=== PATIENT | male | born 1955 | race Caucasian/White ===

== ENCOUNTER 2016-08-29 13:42 | Inpatient (IN) | payer MEDICAID ==
[~2016-08-29] VITALS: Ht 177.8 cm; Wt 126.1 kg
--- NOTE | 2016-08-29 14:03 | NUR ---
PT IS IN ROOM #1A. DR BECK EVALUATED THE PT.
[2016-08-29] MEDS ORDERED: PIPERACILLIN SODIUM/TAZOBACTAM 3.375 G in IV DEXTROSE 5% 50 ML IV ONE (15:00)
[2016-08-29] MEDS ORDERED: VANCOMYCIN IV 1,000 MG in IV DEXTROSE 5% 250 ML IV ONE (15:00)
[2016-08-29] MEDS ORDERED: IV NORMAL SALINE 1000 ML BAG IV ONE (15:00)
[2016-08-29] MEDS ORDERED: PIPERACILLIN/TAZOBACTAM/D5W 50 ML IV ONE (15:15)
[2016-08-29] MEDS ORDERED: VANCOMYCIN IV 200 ML ONE (15:15)
[2016-08-29 15:32] LABS: BASOPHILS # (AUTO) 0.1 K/uL (0.0-8.0); BASOPHILS % (AUTO) 1.3 % (0.0-2.0); EOSINOPHILS # (AUTO) 0.1 K/uL (0.0-0.7); EOSINOPHILS % (AUTO) 1.7 % (0.0-7.0); HEMATOCRIT 45.3 % (40-50); HEMOGLOBIN 15.3 G/DL (14.0-18.0); LYMPHOCYTES # (AUTO) 1.3 K/UL (0.8-4.8); LYMPHOCYTES % (AUTO) 23.6 % (20.5-51.5); MEAN CORPUSCULAR HEMOGLOBIN 34.4 UUG (27.0-31.0); MEAN CORPUSCULAR HGB CONC 34 g/dL (32.0-37.0); MONOCYTES # (AUTO) 0.9 K/UL (0.1-1.30); MONOCYTES % (AUTO) 15.7 % (0.0-11.0); NEUTROPHILS # (AUTO) 3.1 K/UL (1.8-8.9); NEUTROPHILS % (AUTO) 57.7 % (38.5-71.5); PLATELET COUNT (AUTO) 130 K/UL (150-450); RED BLOOD CELL COUNT(AUTO) 4.44 MIL/UL (4.7-6.1); WHITE BLOOD COUNT (AUTO) 5.5 K/UL (4.0-11.2)
[2016-08-29 15:40] LABS: CREATININE 0.8 mg/dL (0.6-1.3); POTASSIUM 3.6 mmol/L (3.5-5.1)
[2016-08-29 15:50] LABS: *BILIRUBIN,URIN NEGATIVE (NEGATIVE); *BLOOD, URINE NEGATIVE (NEGATIVE); *CLARITY,URINE CLEAR (CLEAR); *COLOR,URINE YELLOW (YELLOW); *KETONES,URINE NEGATIVE (NEGATIVE); *PROTEIN,URINE NEGATIVE (NEGATIVE); LEUKOCYTE ESTERASE ,URINE NEGATIVE (NEGATIVE); NITRITE, URINE NEGATIVE (NEGATIVE); PH,URINE 6.5 (5.0-8.0); UGLUCOSE NEGATIVE (NEGATIVE)
[2016-08-29 15:58] LABS: BILIRUBIN,DIRECT 0.3 mg/dL (0.0-0.2); BILIRUBIN,TOTAL 0.9 mg/dL (0.2-1.0); TOTAL PROTEIN, SERUM 7.5 g/dL (6.4-8.2)
[2016-08-29 16:08] LABS: NEUTROPHILS % (MANUAL) 0 % (42-75)
[2016-08-29 16:19] LABS: BACTERIA,URINE NONE SEEN /HPF (NONE SEEN); RBC,URINE 0-3 /HPF (0-3); SQUAMOUS EPITHELIAL CELL,UR NONE SEEN /HPF (NONE SEEN); WBC,URINE 0-3 /HPF (0-3)
--- NOTE | 2016-08-29 19:10 | NUR ---
REPORT GIVEN TO HEAD HOUSEKEEPER RN.
--- NOTE | 2016-08-29 19:17 | NUR ---
Received report from DELMIS Amaya. Assumed care of pt at this time. Admission pending. Pt resting in position of comfort for self. No obvious signs of distress at this time
--- NOTE | 2016-08-29 19:30 | NUR ---
Received telephone SBAR report from ESPINOZA Smith-DELMIS.
[2016-08-29] MEDS ORDERED: MISCELLANEOUS MED XX PRN ×2 (19:45)
--- NOTE | 2016-08-29 19:50 | NUR ---
Pt c/o severe pain. MD notified and pt medicated. pt given 1mg of dilaudid and 4 mg of zofran IVP. 3L in sepsis fluid bolus infusing freely to gravity. Report called to DELMIS Osullivan, preparing to transfer pt to the floor.
[2016-08-29] MEDS ORDERED: HYDROMORPHONE 1 MG/1 ML DISP.SYRIN ONE (19:58)
[2016-08-29] MEDS ORDERED: ONDANSETRON 4 MG/2 ML VIAL ONE (19:58)
[2016-08-29 20:00] VITALS: BP 216/103
--- NOTE | 2016-08-29 20:00 | NUR ---
Patient transported to this CCU-4 under MS status. Patient is in no acute distress. AAO x3. Complains of 8/10 sharp burning pain in BLE associated with cellulitis. Also complains of chest pain 7/10 that "feel like its going from my infected legs and shooting up to my chest." No radiation back, shoulders, jaw, or arms. Room air with low O2 sat Addendum: 08/30/16 at 0004 by DONA CATALAN RN ... ranging from 89-93%. Oxygen applied, will notify MD and obtain order. Peripheral IV in right AC, patent. Bolus ordered from ER still running and to be continued.
--- NOTE | 2016-08-29 20:30 | NUR ---
Spoke with Dr. Yari Jacob. Admission orders received, see Order List
[2016-08-29] MEDS ORDERED: ZOLPIDEM 5 MG TABLET PO PRN (20:45)
[2016-08-29] MEDS ORDERED: ACETAMINOPHEN 325 MG TABLET PO PRN (20:45)
[2016-08-29] MEDS: CLONIDINE HCL 0.1 MG TABLET PO PRN (21:00)
[2016-08-29] MEDS ORDERED: CLONIDINE HCL 0.1 MG TABLET ONE (21:09)
--- NOTE | 2016-08-29 21:09 | NUR ---
STK-MED ONCe Clonidine removed from pyxis, administered as ordered. See eMAR.
[2016-08-29] MEDS ORDERED: NORMAL SALINE FLUSH 10 ML DISP.SYRIN ONE (21:45)
[2016-08-29] MEDS ORDERED: IOHEXOL 350 100 ML INFUS..BTL ONE (21:45)
[2016-08-29] MEDS ORDERED: IV NORMAL SALINE 250 ML IV ONE (21:45)
[2016-08-29] MEDS ORDERED: PIPERACILLIN SODIUM/TAZO 3.375 GM VIAL ONE (22:16)
[2016-08-29] MEDS: PIPERACILLIN/TAZOBACTAM/D5W 3.375 G in PREMIXED 1 EACH IV SCH (23:35)
[2016-08-29] MEDS: HYDROCODONE/APAP 5-325MG TABLET PO PRN (23:55)
[2016-08-30] VITALS (8 sets, daily range): BP systolic 138–215; BP diastolic 81–104
[2016-08-30] MEDS ORDERED: HYDROCODONE/APAP 5-325MG TABLET ONE (00:04)
--- NOTE | 2016-08-30 00:19 | NUR ---
STK-MED ONCE Removed Benham from xis 08/30 0004. Administered as ordered for pain management, see eMAR
[2016-08-30 05:24] LABS: BASOPHILS % (AUTO) 0.9 % (0.0-2.0); EOSINOPHILS # (AUTO) 0.1 K/uL (0.0-0.7); EOSINOPHILS % (AUTO) 2.6 % (0.0-7.0); HEMOGLOBIN 13.1 G/DL (14.0-18.0); LYMPHOCYTES # (AUTO) 1.2 K/UL (0.8-4.8); LYMPHOCYTES % (AUTO) 27.6 % (20.5-51.5); MEAN CORPUSCULAR HEMOGLOBIN 34.3 UUG (27.0-31.0); MEAN CORPUSCULAR HGB CONC 34 g/dL (32.0-37.0); MEAN CORPUSCULAR VOLUME 101.8 FL (82.0-92.0); MONOCYTES # (AUTO) 0.7 K/UL (0.1-1.30); MONOCYTES % (AUTO) 17.6 % (0.0-11.0); NEUTROPHILS # (AUTO) 2.3 K/UL (1.8-8.9); NEUTROPHILS % (AUTO) 51.3 % (38.5-71.5); PLATELET COUNT (AUTO) 133 K/UL (150-450); RED BLOOD CELL COUNT(AUTO) 3.83 MIL/UL (4.7-6.1); WHITE BLOOD COUNT (AUTO) 4.3 K/UL (4.0-11.2)
[2016-08-30 05:32] LABS: CREATININE 0.8 mg/dL (0.6-1.3)
[2016-08-30] MEDS: PIPERACILLIN/TAZOBACTAM/D5W 3.375 G in PREMIXED 1 EACH IV SCH ×3 (05:49→23:25)
--- NOTE | 2016-08-30 07:30 | NUR ---
RECIEVED PT LYING IN BED, VERY PLEASANT, AWAKE AND ORIENTEDX3. SLIGHTLY OBESED, FACE IS FLUSHED AND RED, GENERAL CONDITION OF HIS SKIN IS TOUGH AND DRY. BOTH LEGS ARE SWOLLEN AND RED, AND C/O OF DISCOMFORTS LEVEL 8. ELEVATED ON PILLOWS, GOOD PEDAL PULSES. AFEBRILE.
[2016-08-30 08:28] LABS: EOSINOPHILS % (MANUAL) 2 % (0-8); LYMPHOCYTES % (MANUAL) 29 % (20-40); MONOCYTES % (MANUAL) 15 % (2-10); NEUTROPHILS % (MANUAL) 54 % (42-75)
--- NOTE | 2016-08-30 08:30 | NUR ---
PT ATE GOOD BREAKFAST. SEEN AND EXAMINED BY DR MOORE WITH NEW ORDERS.
[2016-08-30] MEDS: VANCOMYCIN IV 2,000 MG in IV DEXTROSE 5% 500 ML IV SCH ×2 (08:45→20:46)
--- NOTE | 2016-08-30 09:00 | NUR ---
PT ON VANCOMYCIN IVPB, STARTED INFUSING ON THE RIGHT AC G20.
[2016-08-30] MEDS: HYDROCODONE/APAP 5-325MG TABLET PO PRN ×3 (09:14→23:25)
[2016-08-30] MEDS: IPRATROPIUM BROMIDE 0.5 MG/2.5 ML NEBU NEB SCH ×2 (09:37→19:07)
[2016-08-30] MEDS: ALBUTEROL SULFATE 1.25 MG/3 ML NEBU NEB SCH ×2 (09:37→19:07)
--- NOTE | 2016-08-30 10:00 | NUR ---
IV SITE LEAKING AND INFILTRATED. VANCO OFF AND STARTED A NEW IV LINE ON THE LEFT AC G20. PT AMBULATORY TO THE BATHROOM. DENIES ANY DIZZINESS OR HEADACHE.
[2016-08-30] MEDS: methylPREDNISolone SOD SUCC 40 MG/ML VIAL IV SCH ×3 (10:33→20:47)
[2016-08-30] MEDS: NICOTINE 21 MG/24HR PATCH TD SCH (10:59)
--- NOTE | 2016-08-30 13:00 | NUR ---
PT HAS A GOOD SHOWER BATH AND FEELS SO MUCH BETTER. NO APPARENT DISTRESS NOTED.
[2016-08-30] MEDS: CLONIDINE HCL 0.1 MG TABLET PO PRN (15:38)
--- NOTE | 2016-08-30 15:40 | NUR ---
SBP IS ELEVATED 198/128. PT DENIES ANY HEADACHE. MEDICATED WITH CLONIDINE 0.1MG ORDERED. PT SLEEPING ON AND OFF.
--- NOTE | 2016-08-30 16:21 | NUR ---
Clinical Pharmacy Note: Vancomycin Pharmacy to Dose Subjective: To start vancomycin in this 61 yo gentleman for cellulitis Objective: height 177cm weight 128kg BMI 40.6 BUN 5 Scr 0.8 Wbc 4.3 Temp 98.7 1gm given on 08/29 ~ 1600 Assessment/Plan Will start scheduled regimen of 2gm q11hrs for expected trough of 14.54. Will order trough before 4th scheduled dose (not ordered yet). Will monitor renal function daily. will continue to follow
--- NOTE | 2016-08-30 17:00 | NUR ---
RECHECKED SBP BOTH ARMS, BLOOD PRESSURE CONTINUES TO GO UP TO 215/104. NOTIFIED DR MOORE ABOUT PTS CONDITION. WITH NEW ORDERS.
--- NOTE | 2016-08-30 17:10 | NUR ---
MEDICATED WITH NORVASC 10MG ORALLY ORDERED. PT IS ASYMPTOMATIC. PT IS TRANSFERRED TO [facility] STATUS PER DR AMADO.
[2016-08-30] MEDS: AMLODIPINE 10 MG TABLET PO SCH (17:20)
[2016-08-30] MEDS ORDERED: hydrALAZINE HCL 25 MG TABLET PO PRN (18:00)
--- NOTE | 2016-08-30 18:00 | NUR ---
TRANSFERRED TO [facility] VIA WHEELCHAIR. CONDITION IS STABLE.
--- NOTE | 2016-08-30 19:00 | NUR ---
LATEST BP IS 163/95. MEDICATED WITH METOPROLOL 50MG PO ORDERED. PT DENIES ANY CHESTPAINS.
[2016-08-30] MEDS: METOPROLOL TARTRATE 50 MG TABLET PO SCH ×2 (19:05→21:49)
[2016-08-31] VITALS: BP 140/80
[2016-08-31] MEDS: ALBUTEROL SULFATE 1.25 MG/3 ML NEBU NEB SCH ×5 (00:51→19:30)
[2016-08-31 04:00] VITALS: BP 162/91
[2016-08-31] MEDS: CLONIDINE HCL 0.1 MG TABLET PO PRN (04:13)
[2016-08-31] MEDS: HYDROCODONE/APAP 5-325MG TABLET PO PRN (06:23)
[2016-08-31] MEDS: PIPERACILLIN/TAZOBACTAM/D5W 3.375 G in PREMIXED 1 EACH IV SCH ×3 (06:24→21:42)
[2016-08-31] MEDS: IPRATROPIUM BROMIDE 0.5 MG/2.5 ML NEBU NEB SCH ×4 (06:36→19:30)
[2016-08-31] MEDS ORDERED: LORAZEPAM 1 MG TABLET PO PRN (06:45)
[2016-08-31 06:57] LABS: EOSINOPHILS % (AUTO) 0.1 % (0.0-7.0); HEMATOCRIT 45.2 % (40-50); HEMOGLOBIN 15.8 G/DL (14.0-18.0); LYMPHOCYTES # (AUTO) 0.8 K/UL (0.8-4.8); LYMPHOCYTES % (AUTO) 8.4 % (20.5-51.5); MEAN CORPUSCULAR HGB CONC 35 g/dL (32.0-37.0); MEAN CORPUSCULAR VOLUME 103.3 FL (82.0-92.0); MONOCYTES # (AUTO) 0.5 K/UL (0.1-1.30); MONOCYTES % (AUTO) 5.6 % (0.0-11.0); NEUTROPHILS # (AUTO) 7.7 K/UL (1.8-8.9); NEUTROPHILS % (AUTO) 85.9 % (38.5-71.5); PLATELET COUNT (AUTO) 168 K/UL (150-450); RED BLOOD CELL COUNT(AUTO) 4.37 MIL/UL (4.7-6.1)
[2016-08-31 07:02] LABS: POTASSIUM 4.3 mmol/L (3.5-5.1)
--- NOTE | 2016-08-31 07:25 | NUR ---
report received from DELMIS HOLLOWAY Addendum: 08/31/16 at 0951 by ALETA GALLEGOS RN Amended: Links added.
[2016-08-31 07:34] VITALS: BP 126/68
[2016-08-31] MEDS: METOPROLOL TARTRATE 50 MG TABLET PO SCH ×2 (08:23→20:25)
[2016-08-31] MEDS: methylPREDNISolone SOD SUCC 40 MG/ML VIAL IV SCH ×2 (08:23→20:26)
[2016-08-31] MEDS: AMLODIPINE 10 MG TABLET PO SCH (08:23)
[2016-08-31] MEDS: VANCOMYCIN IV 2,000 MG in IV DEXTROSE 5% 500 ML IV SCH ×2 (08:23→18:18)
[2016-08-31] MEDS: NICOTINE 21 MG/24HR PATCH TD SCH (08:24)
--- NOTE | 2016-08-31 09:00 | NUR ---
medicated with ativan po for possible withdrawals from alcohol, per patient's request Addendum: 08/31/16 at 0953 by ALETA GALLEGOS RN Amended: Links added.
--- NOTE | 2016-08-31 09:45 | NUR ---
At this time I received report from lisa Church. Upon assessment patient confused forcefully removed IV line with vancomycin running. and also patient walking out of the room towards exit. rn acls and Orchardist notified of the need of 1:1 sitter, since this is the 2nd time patient removes iv. and also confused.
--- NOTE | 2016-08-31 09:52 | NUR ---
report given to DELMIS Handy Addendum: 08/31/16 at 2652 by ALETA GALLEGOS RN Amended: Links added.
--- NOTE | 2016-08-31 10:45 | NUR ---
at this time patient restless agitated and forcefully removed IV line. a new one inserted to LAC. Patient reoriented and Wood Piler Esperanza at bedside with patient.
--- NOTE | 2016-08-31 11:08 | NUR ---
Clinical Pharmacy Note: Vancomycin Pharmacy to Dose Subjective: To continue vancomycin in this 61 yo gentleman for BLE cellulitis Objective: height 177cm weight 128kg BMI 40.6 BUN 6 Scr 1.0 Wbc 9.0 Temp 97.2 Assessment/Plan Will continue same dose of vancomycin 2gm IVPB q11hrs for today. 3rd dose was given to day at 0800. Will order trough before 4th scheduled dose (ordered for today at 1730).Pharmacist shall review the level when available & adjust the dose if needed. Will monitor renal function daily. will continue to follow Addendum: 08/31/16 at 1812 by JAVI DACOSTA ADM TROUGH 16.6 CONTINUE SAME DOSE
[2016-08-31] MEDS: LORAZEPAM 2 MG/1 ML VIAL IV PRN (11:20)
[2016-08-31] MEDS: THIAMINE HCL 100 MG TABLET PO SCH (11:25)
[2016-08-31] MEDS: FOLIC ACID/VITAMIN B COMP W-C TABLET PO SCH (11:25)
[2016-08-31] MEDS: MULTIVITAMINS,THERAPEUTIC TABLET PO SCH (11:25)
--- NOTE | 2016-08-31 11:30 | NUR ---
Patient with another episode of agitation and restlessness. and attempting to to run away from premises.
[2016-08-31 13:12] VITALS: BP 140/76
--- NOTE | 2016-08-31 13:35 | NUR ---
Ranjeet bustillo called at this time due to restlessness and agitation, Dr. Locke called to be notified. At this time patient able to junk out iv line and bleeding throughout the hallway as he was attempting to leave facility. Patient disoriented, and making no sense. Ranjeet bustillo attended by nursing chest painting and sealing supervisor and chief unit forester who help to situate patient back to his room. Assembler Finger Buffs left at bedside 1:1 sitter.
[2016-08-31] MEDS ORDERED: LORAZEPAM 2 MG/1 ML VIAL IV ONE (14:00)
[2016-08-31] MEDS ORDERED: HALOPERIDOL LACTATE 5 MG/1 ML VIAL IM ONE (14:00)
[2016-08-31] MEDS: HALOPERIDOL LACTATE 5 MG/1 ML VIAL IM ONE ×3 (15:04→15:32)
[2016-08-31] MEDS ORDERED: HALOPERIDOL LACTATE 5 MG/1 ML VIAL ONE (15:12)
--- NOTE | 2016-08-31 15:12 | NUR ---
haldol 5mg non-administered, it was an override med-by community nutrition educator,. At this time patient extremely agitated, restless, combative. tile setter supervisor informed and documentation done. as administered without scanning, because first time I scanned the 1500 immediately fall under 1400. I spoke with pharmacy and notify them that I undo procedure to do it correctly but at this time I had dispose the vial already. having as witness director community organization.
[2016-08-31 16:35] VITALS: BP 146/94
--- NOTE | 2016-08-31 19:10 | NUR ---
Report received from DELMIS Cobos
--- NOTE | 2016-08-31 19:25 | NUR ---
Seen patient at the bedside lying on lockett's position, awake but disoriented, refused to tell his name, talks about that he will call a police, he also thinks that he's at [facility], that he wants to see his doctor at [place]. Refused treatments (breathing treatment), also he said that we don't have to give meds because he will be gone soon. Sitter at the bedside. Made pt comfortable. Continue monitor. Pt on telebox, SR w/ mild PVC/PAC rate of 92. Flushed face observed, non labored breathing. Left leg reddened observed. left FA g 20 peripheral line.
[2016-08-31 20:00] VITALS: BP 154/90
--- NOTE | 2016-08-31 20:00 | NUR ---
Pt refused breathing treatment. Pt intermittently follows commands. He took out nasal cannula, but was able to convince it again to put it back.
[2016-08-31] MEDS: LACTOBACILLUS RHAMNOSUS GG 1 EACH CAPSULE PO SCH (20:25)
[2016-08-31] MEDS ORDERED: HALOPERIDOL LACTATE 5 MG/1 ML VIAL IM PRN (21:45)
[2016-09-01] VITALS (7 sets, daily range): BP systolic 123–148; BP diastolic 70–84
--- NOTE | 2016-09-01 | NUR ---
Observed pt resting/sleeping, breathing normally, pt positioned on his side, sitter continue to be at the bedside. Continue monitor.
[2016-09-01] MEDS: ALBUTEROL SULFATE 1.25 MG/3 ML NEBU NEB SCH ×4 (01:08→19:28)
--- NOTE | 2016-09-01 02:00 | NUR ---
Pt remained asleep, non labored breathing, VS stable.Sitter remained at the bedside.
--- NOTE | 2016-09-01 04:00 | NUR ---
Asleep,turned and repositioned, sitter remained at the bedside.
[2016-09-01] MEDS: VANCOMYCIN IV 2,000 MG in IV DEXTROSE 5% 500 ML IV SCH ×2 (04:59→16:51)
--- NOTE | 2016-09-01 05:00 | NUR ---
Hanged Vancomycin at 250mls/hr (500mls) to run for 2 hrs.
--- NOTE | 2016-09-01 06:30 | NUR ---
Sponge bath provided, made him comfortable. intake and output taken and recorded.
--- NOTE | 2016-09-01 07:00 | NUR ---
Zosyn not given due to Vanco still hanging, endorsed to Perla,RN
--- NOTE | 2016-09-01 07:30 | NUR ---
Report to DELMIS Duncan
--- NOTE | 2016-09-01 07:30 | NUR ---
PATIENT RECEIVED IN ROOM RESTING WITH EYES CLOSED IN NO ACUTE DISTRESS. SR ON AQUARIST. RESPIRATIONS EVEN AND UNLABORED. 02 ON 2L/NC. FALL PRECAUTIONS IN PLACE. CONTINUES WITH SITTER AT BEDSIDE FOR SAFETY.
[2016-09-01] MEDS: IPRATROPIUM BROMIDE 0.5 MG/2.5 ML NEBU NEB SCH ×3 (07:31→19:28)
[2016-09-01] MEDS: PIPERACILLIN/TAZOBACTAM/D5W 3.375 G in PREMIXED 1 EACH IV SCH ×3 (08:58→22:04)
--- NOTE | 2016-09-01 09:30 | NUR ---
Clinical Pharmacy Note: Vancomycin Pharmacy to Dose Subjective: To continue vancomycin in this 61 yo gentleman for BLE cellulitis Objective: height 177cm weight 128kg BMI 40.6 BUN 6 (08/31) Scr 1.0 (08/31) Wbc 9.0 (08/31) Temp 98.4 Vancomycin trough level : 16.6 (08/31) Assessment/Plan Will continue same dose of vancomycin 2gm IVPB q11hrs for today. Next dose is due today at 1600. Will monitor renal function daily. will continue to follow
[2016-09-01] MEDS: methylPREDNISolone SOD SUCC 40 MG/ML VIAL IV SCH ×3 (09:36→23:53)
[2016-09-01] MEDS: LACTOBACILLUS RHAMNOSUS GG 1 EACH CAPSULE PO SCH ×2 (09:36→20:58)
[2016-09-01] MEDS: MULTIVITAMINS,THERAPEUTIC TABLET PO SCH (09:36)
[2016-09-01] MEDS: FOLIC ACID/VITAMIN B COMP W-C TABLET PO SCH (09:36)
[2016-09-01] MEDS: THIAMINE HCL 100 MG TABLET PO SCH (09:36)
[2016-09-01] MEDS: NICOTINE 21 MG/24HR PATCH TD SCH (09:37)
[2016-09-01] MEDS: METOPROLOL TARTRATE 50 MG TABLET PO SCH ×2 (09:38→20:59)
[2016-09-01] MEDS: AMLODIPINE 10 MG TABLET PO SCH (09:39)
[2016-09-01] MEDS: LORAZEPAM 2 MG/1 ML VIAL IV PRN (09:40)
--- NOTE | 2016-09-01 20:00 | NUR ---
RECEIVED PT. VERBALLY RESPONSIVE, SEEMS DROWSY. ON O2 @ 2L NC W/ O2 SAT OF 96%. IVF NS @ 5CC/HR ON LFA, NO SIGNS OF INFILTRATION. DENIES PAIN THIS TIME. NOT IN ANY DISTRESS.
[2016-09-01] MEDS ORDERED: ENOXAPARIN SODIUM 40 MG/0.4 ML DISP.SYRIN SQ SCH (21:00)
--- NOTE | 2016-09-01 23:58 | NUR ---
AMBIEN 5MG GIVEN PO PER PT. REQUEST.
[2016-09-02] VITALS: BP 160/91
--- NOTE | 2016-09-02 01:00 | NUR ---
SLEEPING @ THIS TIME. NOT IN ANY DISTRESS.
[2016-09-02] MEDS: ALBUTEROL SULFATE 1.25 MG/3 ML NEBU NEB SCH ×3 (01:32→13:50)
[2016-09-02] MEDS: VANCOMYCIN IV 2,000 MG in IV DEXTROSE 5% 500 ML IV SCH ×2 (02:44→15:00)
[2016-09-02 04:00] VITALS: BP 152/87
[2016-09-02] MEDS: methylPREDNISolone SOD SUCC 40 MG/ML VIAL IV SCH ×3 (05:39→18:00)
[2016-09-02] MEDS: PIPERACILLIN/TAZOBACTAM/D5W 3.375 G in PREMIXED 1 EACH IV SCH ×2 (05:40→14:11)
[2016-09-02 06:37] LABS: BASOPHILS % (AUTO) 0.2 % (0.0-2.0); EOSINOPHILS % (AUTO) 0.1 % (0.0-7.0); HEMATOCRIT 44.7 % (40-50); HEMOGLOBIN 15.1 G/DL (14.0-18.0); LYMPHOCYTES # (AUTO) 0.8 K/UL (0.8-4.8); LYMPHOCYTES % (AUTO) 8.6 % (20.5-51.5); MEAN CORPUSCULAR HGB CONC 34 g/dL (32.0-37.0); MEAN CORPUSCULAR VOLUME 103.6 FL (82.0-92.0); MONOCYTES # (AUTO) 0.4 K/UL (0.1-1.30); MONOCYTES % (AUTO) 4.7 % (0.0-11.0); NEUTROPHILS # (AUTO) 7.6 K/UL (1.8-8.9); NEUTROPHILS % (AUTO) 86.4 % (38.5-71.5); PLATELET COUNT (AUTO) 186 K/UL (150-450); RED BLOOD CELL COUNT(AUTO) 4.32 MIL/UL (4.7-6.1); WHITE BLOOD COUNT (AUTO) 8.8 K/UL (4.0-11.2)
[2016-09-02 07:00] LABS: CREATININE 0.9 mg/dL (0.6-1.3); PHOSPHOROUS 4.6 mg/dL (2.5-4.9); POTASSIUM 4.2 mmol/L (3.5-5.1)
--- NOTE | 2016-09-02 07:20 | NUR ---
PATIENT RECEIVED IN ROOM RESTING ALERT AWAKE IN NO ACUTE DISTRESS. SR ON DEALER ACCOUNTS INVESTIGATOR. RESPIRATIONS EVEN AND UNLABORED. SITTER AT BEDSIDE FOR SAFETY.
[2016-09-02] MEDS: IPRATROPIUM BROMIDE 0.5 MG/2.5 ML NEBU NEB SCH ×2 (07:41→13:50)
[2016-09-02 07:54] VITALS: BP 166/95
[2016-09-02] MEDS: FOLIC ACID/VITAMIN B COMP W-C TABLET PO SCH (08:12)
[2016-09-02] MEDS: METOPROLOL TARTRATE 50 MG TABLET PO SCH (08:12)
[2016-09-02] MEDS: LACTOBACILLUS RHAMNOSUS GG 1 EACH CAPSULE PO SCH (08:12)
[2016-09-02] MEDS: MULTIVITAMINS,THERAPEUTIC TABLET PO SCH (08:12)
[2016-09-02] MEDS: AMLODIPINE 10 MG TABLET PO SCH (08:12)
[2016-09-02] MEDS: THIAMINE HCL 100 MG TABLET PO SCH (08:12)
[2016-09-02] MEDS: NICOTINE 21 MG/24HR PATCH TD SCH (08:13)
--- NOTE | 2016-09-02 10:13 | NUR ---
PATIENT AMBULATED WITH PT AND TOLERATED WELL. SITTING UP ON CHAIR AT THIS TIME.
[2016-09-02 11:13] VITALS: BP 114/63
[2016-09-02] MEDS ORDERED: METH4TAB3 PO (14:06)
[2016-09-02] MEDS ORDERED: IPRA0.2S6 NEB (14:06)
[2016-09-02] MEDS ORDERED: METO50TA3 PO (14:06)
[2016-09-02] MEDS ORDERED: AMLO10TA2 PO (14:06)
[2016-09-02] MEDS ORDERED: SULF1TAB48 PO (14:06)
[2016-09-02] MEDS ORDERED: ALBU1.25 NEB (14:06)
[2016-09-02] MEDS ORDERED: THIA100T13 PO (14:13)
[2016-09-02 15:30] VITALS: BP 127/78
--- NOTE | 2016-09-02 16:00 | NUR ---
The patient will be discharged today per Rosibel Ordoñez NP. The patient stated that he will be going to his niece's home and he is waiting for her to give him the actual address. He arranged for his friend to pick him up via private car and insists on being discharged to himself. This commercial census taker spoke to Lisa from [employer] [email or web address] [facility] [employer] [ ; ] and she stated that they will arrange for a home health nurse to follow-up. Lisa spoke to the patient and he promised to give her a call and provide the address where he will be staying. Explained to the patient that because we do not have an address, he needs to sign the homeless form and he agreed. Offered [facility] placement but he reassured this commercial census taker that he will be staying at his niece's home. His RN, Karen, is aware of his discharge plan.
[2016-09-02 16:21] VITALS: BP 114/63
--- NOTE | 2016-09-02 16:24 | NUR ---
DISCHARGING PATIENT TO SELF IN A STABLE CONDITION, WAIVER FORM SIGNED. HOME HEALTH WILL FOLLOW UP WITH PATIENT. DISCHARGE INSTRUCTIONS PROVIDED. LIST OF BELONGINGS SIGNED AND ALL WAS TAKEN. PATIENT LEAVING VIA PRIVATE CAR. ACCOMPANIED BY HIS FRIEND, YAKOV. AWAITING ON RIDE AT THIS TIME. REFUSED TO SPEAK TO PHARMACIST REGARDING NEW PRESCRIPTIONS.
--- NOTE | 2016-09-02 16:43 | NUR ---
Clinical Pharmacy Note: Vancomycin Pharmacy to Dose Subjective: To continue vancomycin in this 61 yo gentleman for BLE cellulitis Objective: height 177cm weight 128kg BMI 40.6 BUN 13 Scr 0.9 Wbc 8.8 Temp 99.5 Assessment/Plan Since renal function is stable, will continue same dose of vancomycin 2gm IVPB q11hrs for today. Next dose is due tomorrow at 0100. Will monitor renal function daily. will continue to follow
--- NOTE | 2016-09-02 18:27 | NUR ---
PATIENT LEAVING AT THIS TIME. IV REMOVED, PRESSURE APPLIED AND NO BLEEDING OBSERVED.
== END 2016-09-02 18:23 | disposition home health service (06) | DRG 140 ==
LOC: ER 13:44 → TELE 18:06 → CCU 19:36 → TELE-TD 08-30 18:34 → MED 09-02 11:00
PROVIDERS: ADMIT Internal Medicine; ATTEND Internal Medicine
DX: J44.1 Chronic obstructive pulmonary disease with (acute) exacerbation (principal); E44.1 Mild protein-calorie malnutrition; L03.115 Cellulitis of right lower limb; E87.1 Hypo-osmolality and hyponatremia; L03.116 Cellulitis of left lower limb; R07.89 Other chest pain; B19.20 Unspecified viral hepatitis C without hepatic coma; K59.00 Constipation, unspecified; R12 Heartburn; Z98.890 Other specified postprocedural states; F17.200 Nicotine dependence, unspecified, uncomplicated; Z68.39 Body mass index [BMI] 39.0-39.9, adult; E66.9 Obesity, unspecified
CPT/HCPCS: 36415; 70030-TC; 71010; 71275; 83605; 83735; 84100; 85025; 85730; 87040; 87086; 93005; 93307; 94640; 94664; 97161; A4663; J1170; J1630; J1650; J2060; J2405; J2543; J2920; J3370; J3490; J3590; J7050; J7060; Q9967

== ENCOUNTER 2017-08-17 11:25 | Emergency (ER) | payer MEDICAID ==
[~2017-08-17] VITALS: Ht 180.3 cm; Wt 104.3 kg
[~2017-08-17 11:25] MED LIST: ALBU1.25 NEB; AMLO10TA2 PO; IPRA0.2S6 NEB; METH4TAB3 PO; METO50TA16 PO; SULF1TAB48 PO; THIA100T13 PO
--- NOTE | 2017-08-17 12:00 | NUR ---
MSE COMPLETED, PT D/C'D HOME, ACI/RX X1 GIVEN. PT AMBULATED W/O DIFF,TOOK ALL BELONGINGS.
[2017-08-17 12:01] VITALS: BP 134/78
== END 2017-08-17 12:02 | disposition home or self-care (01) ==
LOC: ER 11:25
DX: D23.9 Other benign neoplasm of skin, unspecified (principal); Z79.899 Other long term (current) drug therapy
CPT/HCPCS: A4663